=== PATIENT | male | born 1930 | race Caucasian/White ===

== ENCOUNTER → 2016-09-03 | Outpatient (CLI) | payer OTHER ==
--- NOTE | 2016-09-03 17:08 | DX ---
Left RIBS, 2 views HISTORY: Trauma, fall FINDINGS: Slightly displaced left fifth rib fracture posteriorly. No definite pneumothorax. BB overli es the seventh rib without additional fracture. IMPRESSION: Left fifth rib fracture posteriorly with slight displacement.
== END ==
LOC: BMCIMAGING 14:23
PROVIDERS: ATTEND Internal Medicine Rheumatology
DX: S22.32XA Fracture of one rib, left side, initial encounter for closed fracture (principal)

== ENCOUNTER → 2016-12-07 | Outpatient (CLI) | payer OTHER | LOC: BMCIMAGING 13:49 | PROVIDERS: ATTEND Internal Medicine Rheumatology | DX: Z13.820 Encounter for screening for osteoporosis (principal); M85.80 Other specified disorders of bone density and structure, unspecified site ==